=== PATIENT | female | born 1980 | race Caucasian/White ===

== ENCOUNTER → 2016-04-18 | Outpatient (CLI) | payer OTHER ==
[2016-04-18 17:05] LABS: CHOLESTEROL/HDL RATIO 2.1
[2016-04-18 17:23] LABS: FREE T4 1.21 ng/dL (0.76-1.46)
== END | disposition home or self-care (01) ==
LOC: LAB 16:29
PROVIDERS: ATTEND Obstetrics & Gynecology
DX: Z01.419 Encounter for gynecological examination (general) (routine) without abnormal findings (principal)
CPT/HCPCS: 36415; 80061; 84439; 84443